=== PATIENT | female | born 2000 | race Caucasian/White ===

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

== ENCOUNTER → 2022-03-23 15:40 | Outpatient (BNVA) | payer MEDICAID, SELFPAY | PROVIDERS: PCP Pediatrics Adolescent Medicine; Visit Provider Nurse Practitioner | DX: J06.9 Acute upper respiratory infection, unspecified (principal); R68.89 Other general symptoms and signs | CPT/HCPCS: 87486; 87581; 87633 ==

== ENCOUNTER 2022-03-28 14:12 | Emergency (ER) | payer MEDICAID, SELFPAY ==
[2022-03-28 14:16] VITALS: BP 108/76; PULSE 89; RESP 16; TEMP 36.4; O2SAT 99
--- NOTE | 2022-03-28 14:20 | XRR_ITS ---
PROCEDURE INFORMATION: Exam: XR Right Knee Exam date and time: 03/28/2022 2:25 PM Age: 21 years old Clinical indication: Pain; Knee; Right; Additional info: Pain and swelling, no injury TECHNIQUE: Imaging protocol: Radiologic exam of the Right knee. Views: 3 views. COMPARISON: No relevant prior studies available. FINDINGS: Bones/joints: Osseous structures are intact. Negative for fracture. Joint spaces are preserved. Soft tissues: Normal. XR/XR knee RT 3V* [id number] IMPRESSION: No acute findings.
--- NOTE | 2022-03-28 14:32 | ED_ITS ---
HPI - Extremity Problem General: Chief complaint: Extremity Injury, Lower Stated complaint: right knee pain Time Seen by Provider: 03/28/22 14:13 History of Present Illness: Patient is a 21-year-old female comes to the ED with right knee pain. She denies any trauma or injury to cause symptoms. This morning she woke up and was having right knee pain and swelling. She has had this 1 time before and it lasted for approximately a week and went away. She endorses having pain that is mild and it worsens if she tries to completely straighten her right leg. She is able to weight-bear with minimal pain. Associated symptoms: Deny chest pain, fever(s) or rash Review of Systems Const: Denies: fever(s), chills or fatigue Eyes: Denies: change in vision or eye discomfort ENMT: Denies: throat pain, odynophagia, nasal discharge or nasal congestion Card: Denies: chest pain, palpitations, edema, swelling of feet/ankles, dyspnea on exertion or orthopnea Resp: Denies: dyspnea, productive cough or non-productive cough GI: Denies: abdominal pain, nausea, vomiting, diarrhea, constipation or hematochezia : Denies: flank pain, dysuria or hematuria Musc: Reports: extremity pain (Right knee) and extremity swelling (Right knee); Denies: neck pain, back pain or limited range of motion Skin/Breast: Denies: rash or new lesions Neuro: Denies: headache(s), numbness in extremities or weakness in extremities PFS ED PFSH: Medical History No pertinent family history Surgical History No pertinent past surgical history Social History Smoking and tobacco status: never smoked Alcohol intake: never Physical Exam Const: COMMON NORMALS: patient oriented x3 and alert GENERAL APPEARANCE: cooperative and comfortable HENMT: COMMON NORMALS: normocephalic HEAD & SCALP: normocephalic MOUTH: Normal oral and palatal mucosa present THROAT: posterior oropharynx normal and uvula midline Neck/C-Spine: COMMON NORMALS: supple GENERAL: Yes normal visual inspection Resp: COMMON NORMALS: normal respiratory effort, No retractions, No use of accessory muscles and clear to auscultation bilaterally AUSCULTATION: clear to auscultation bilaterally Cardio: COMMON NORMALS: regular rate, regular rhythm, S1 normal heart sound present, S2 normal heart sound present, No gallops present (Cardio), No clicks present (Cardio), No murmurs present (Cardio) and Peripheral pulses 2+ throughout RATE: regular rate RHYTHM: regular rhythm HEART SOUNDS: S1 normal heart sound present and S2 normal heart sound present PERIPHERAL PULSES: Peripheral pulses 2+ throughout GI: COMMON NORMALS: Normal to inspection, nondistended, normoactive bowel sounds present, Soft to palpation, non-tender and no masses PALPATION: Yes Soft to palpation : COMMON NORMALS: Yes no CVA tenderness BLADDER/KIDNEY EXAM: Yes no CVA tenderness Back/Pelvis: COMMON NORMALS: no CVA tenderness Extremity: COMMON NORMALS: normal to inspection NARRATIVE EXTREMITY EXAM: Patient has some visible right knee swelling and some mild tenderness to palpation. Range of motion is normal and patient is able to weight-bear with minimal pain. Neuro: COMMON NORMALS: patient oriented x3 SENSORIUM/ORIENTATION: Yes alert GAIT: Yes Normal gait present Skin: GENERAL SKIN EXAM: dry skin Course Vital Signs: Vital signs: Vital Signs Temperature 97.6 F 03/28/22 14:16 Pulse Rate 89 03/28/22 14:16 Respiratory Rate 16 03/28/22 14:16 Blood Pressure 108/76 03/28/22 14:16 Pulse Oximetry 99 03/28/22 14:16 Oxygen Delivery Me thod 03/28/22 14:16 MDM - Extremity (Nontraumatic) Medical Decision Making Patient is a 21-year-old female comes to the ED with right knee pain and swelling. Patient woke up with symptoms this morning. She denies any injury or trauma to cause right knee pain. Vitals are stable. X-ray of right knee showed no acute findings. Patient was diagnosed with right knee pain and was discharged home with some crutches and her knee was Leonid wrapped help with the swelling. Told to follow-up with PCP in the next week for reevaluation. Return ED precautions given. Patient understood and agreed with plan. Lab Data Radiology Impressions Knee X-Ray 03/28/22 14:20 IMPRESSION: No acute findings. Discharge Plan Discharge Patient Disposition: Home Clinical Impression: Pain in right knee Qualifiers: Chronicity: acute Qualified Code(s): M25.561 - Pain in right knee Condition: Stable Prescriptions: No Action fluticasone propionate [Flonase Allergy Relief] 50 mcg/actuation spray,suspension 2 spray intranasal DAILY Qty: 16 0RF Rx Instructions: administer into each nostril Discharge Orders: Discharge ED (Routine); Ordered 03/28/22 Ordered By: Bob Arriaga Referrals: Rosie Franklin MD [Primary Care Provider] - Discharge Diet: Regular Discharge Activity: Increase activity as tolerated and Use walker/crutches as instructed Patient Instructions: Knee Pain (ED) Activity Restrictions/Additional Instructions: Follow-up with medical provider as directed in the next 5 to 7 days for reevaluation. Use crutches to help ambulate and limit weightbearing for the next couple days then advance weightbearing as tolerated. Rest, ice and elevate right knee. Take medications as prescribed. Return to the ER or your medical provider if condition worsens. Please read and understand discharge instructions. Thank you for choosing [facility] for your healthcare needs today. Please realize this is an emergency room and that we are providing you with a medical screening exam and this may not be complete and all inclusive of all the testing and or work up that you may need to determine your ailment or severity of your illness. It is very important that you follow up as instructed or that you return to the Emergency Department should you have concerns or if your condition changes or worsens in any way. 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
== END 2022-03-28 15:25 | disposition home or self-care (01) ==
PROVIDERS: Emergency Provider Physician Assistant; PCP Pediatrics Adolescent Medicine
DX: M25.561 Pain in right knee (principal)
CPT/HCPCS: 73562; 99283; E0114

== ENCOUNTER 2022-05-07 21:43 | Emergency (ER) | payer MEDICAID, SELFPAY ==
[2022-05-07 21:50] VITALS: BP 121/82; PULSE 107; RESP 14; TEMP 36.7; O2SAT 99
--- NOTE | 2022-05-07 21:57 | ED_ITS ---
HPI - Female Genitourinary General: Chief complaint: Urogenital-Female Stated complaint: vaginal issues Time Seen by Provider: 05/07/22 21:54 History of Present Illness: 21-year-old female comes in today for complaints of vaginal protrusion after gagging. Patient denies any significant pain or discomfort. Patient appears nontoxic. Patient reports no history of or delivery. 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 Associated symptoms: Deny abdominal pain Review of Systems Const: Denies: fever(s) ENMT: Denies: throat pain Card: Denies: chest pain Resp: Denies: dyspnea GI: Denies: abdominal pain : Reports: prolapse symptoms; Denies: difficulty voiding Musc: Denies: neck pain Skin/Breast: Denies: rash PFSH ED PFSH: Medical History No pertinent family history Surgical History No pertinent past surgical history Social History Smoking and tobacco status: never smoked Alcohol intake: never Physical Exam Const: COMMON NORMALS: alert HENMT: COMMON NORMALS: normocephalic HEAD & SCALP: normocephalic Neck/C-Spine: COMMON NORMALS: full ROM Resp: COMMON NORMALS: normal respiratory effort and clear to auscultation bilaterally AUSCULTATION: clear to auscultation bilaterally Cardio: COMMON NORMALS: regular rate and regular rhythm RATE: regular rate RHYTHM: regular rhythm : COMMON NORMALS: Yes no CVA tenderness BLADDER/KIDNEY EXAM: Yes no CVA tenderness EXTERNAL FEMALE EXAM: Yes external swelling Back/Pelvis: COMMON NORMALS: no CVA tenderness Neuro: SENSORIUM/ORIENTATION: Yes alert Course Vital Signs: Vital signs: Vital Signs Temperature 98.1 F 05/07/22 21:50 Pulse Rate 107 H 05/07/22 21:50 Respiratory Rate 14 05/07/22 21:50 Blood Pressure 121/82 05/07/22 21:50 Pulse Oximetry 99 05/07/22 21:50 Oxygen Delivery Me thod 05/07/22 21:50 MDM - Female Medical Decision Making 21-year-old female comes in today with complaints of protrusion from her vaginal area. Patient reported that she had coughed and felt something protruding from her vagina. Patient was concerned she might of developed a prolapsed uterus. On exam we note swelling and edema to the labial folds. Unable to perform speculum exam due to the swelling. Digital exam noted no no prolapse of the uterus or bladder. Differential diagnosis includes not limited to atopic dermatitis, allergic reaction, yeast infection, bacterial vaginosis, trichomonas. Wet prep was negative. Patient does report a history of eczema. Suspect may be atopic dermatitis secondary to exposure to detergent or other products. Recommended steroid to help with the swelling. Encourage plenty of fluids and follow-up with primary care for recheck. Patient reported understanding agreed to plan. Lab Data Laboratory Results Urine Color Yellow (Yellow) 05/07/22 22:05 Urine Appearance Clear (CLEAR) 05/07/22 22:05 Urine pH 6 (5-7) 05/07/22 22:05 Ur Specific [place] 1.015 (1.005-1.030) 05/07/22 22:05 Urine Protein Neg (Negative) 05/07/22 22:05 Urine Glucose (UA) Norm (Normal) 05/07/22 22:05 Urine Ketones Negative (Negative) 05/07/22 22:05 Urine Blood Neg (Negative) 05/07/22 22:05 Urine Nitrate Negative (Negative) 05/07/22 22:05 Urine Bilirubin Neg (Negative) 05/07/22 22:05 Urine Urobilinogen Neg mg/dL (Negative) 05/07/22 22:05 Ur Leukocyte Esterase Negative (Negative) 05/07/22 22:05 Urine HCG, Qual Negative (Negative) 05/07/22 22:05 Discharge Plan Discharge Patient Disposition: Home Clinical Impression: Labial swelling Condition: Stable Prescriptions: New dexamethasone 4 mg tablet 4 mg PO DAILY Qty: 5 0RF No Action fluticasone propionate [Flonase Allergy Relief] 50 mcg/actuation spray,suspension 2 spray intranasal DAILY Qty: 16 0RF Rx Instructions: administer into each nostril Discharge Orders: Discharge ED (Routine); Ordered 05/07/22 Ordered By: Fortino Logan Referrals: Rosie Franklin MD [Primary Care Provider] - Discharge Diet: Usual diet Discharge Activity: Increase activity as tolerated Activity Restrictions/Additional Instructions: Take medications as directed. Drink plenty of water and fluids. Use cool compresses to the labial area for comfort. Use Benadryl, Claritin, or Zyrtec to help with the swelling. Pelvic rest until swelling resolves. Follow-up with primary care or OPERATIONS ENGINEER specialist in 3 to 5 days for recheck. Return to the [facility] room for high fever, inability to urinate, or new concerns. Coding Level of Care Code ED Salesperson Women'S Hats for Claire Black
[2022-05-07 22:12] LABS: Add Urine Microscopic? NO; Charge for UA Resulting for Rev
[2022-05-07] MEDS: diphenhydrAMINE 50 mg Capsule PO (22:37)
[2022-05-07 22:40] LABS: Bilirubin Urine Neg (Negative); Blood Urine Neg (Negative); Glucose Urine UA Norm (Normal); Ketones Urine Negative (Negative); Leukocyte Esterase Urine Negative (Negative); Nitrate Urine Negative (Negative); Protein Urine Neg (Negative); Specific Gravity, Urine 1.015 (1.005-1.030); Urine Appearance Clear (CLEAR); Urine Color Yellow (Yellow); Urobilinogen Urine Neg (Negative); pH Urine 6 (5-7)
[2022-05-07] MEDS: dexamethasone 4 mg Tablet 10 MG PO (23:12)
[2022-05-07 23:18] VITALS: BP 118/75; PULSE 87; O2SAT 96
== END 2022-05-07 23:19 | disposition home or self-care (01) ==
PROVIDERS: Emergency Provider Nurse Practitioner Family; PCP Pediatrics Adolescent Medicine
DX: N76.2 Acute vulvitis (principal)
CPT/HCPCS: 81003; 81025; 87210; 87491; 87591; 99284; E0352; J8540; Q0163

== ENCOUNTER 2022-07-22 07:03 | Emergency (ER) | payer MEDICAID, SELFPAY ==
--- NOTE | 2022-07-22 07:14 | ED_ITS ---
HPI - Headache General: Chief Complaint: Headache Stated Complaint: headache Time Seen by Provider: 07/22/22 07:08 History of Present Illness: Pt is a 22 y/o female who comes to the ED with migraine headache. Symptoms started earlier this morning at around 2 AM. She rates her headache currently a 10 out of 10. Headache is located behind left eye. Denies any head trauma. Endorses having nausea and had one episode of emesis this morning. Patient says she has had headaches similar to this before but has never been treated or evaluated for headaches. Denies any vision changes, numbness or tingling 1 side of her body or face or any weakness to 1 side of her body or face. She took a dose of Excedrin at around 3:00 this morning. Associated symptoms: Reports nausea and vomiting; Deny chest pain, fever(s) or rash Review of Systems Const: Denies: fever(s), chills or fatigue Eyes: Denies: change in vision or eye discomfort ENMT: Denies: throat pain, odynophagia, nasal discharge or nasal congestion Card: Denies: chest pain, palpitations, edema, swelling of feet/ankles, dyspnea on exertion or orthopnea Resp: Denies: dyspnea, productive cough or non-productive cough GI: Reports: nausea and vomiting; Denies: abdominal pain, diarrhea, constipation or hematochezia : Denies: flank pain, dysuria or hematuria Musc: Denies: neck pain, back pain or extremity swelling Skin/Breast: Denies: rash or new lesions Neuro: Reports: headache(s); Denies: numbness in extremities or weakness in extremities PFS ED PFSH: Medical History No pertinent family history Surgical History No pertinent past surgical history Social History Smoking and tobacco status: never smoked Alcohol intake: never Substance/Drug Use: never Physical Exam Const: COMMON NORMALS: no acute distress, patient oriented x3, healthy appearing and alert GENERAL APPEARANCE: cooperative and comfortable HENMT: COMMON NORMALS: normocephalic HEAD & SCALP: normocephalic MOUTH: Normal oral and palatal mucosa present THROAT: posterior oropharynx normal and uvula midline Eye: COMMON NORMALS: Equal, round and reactive pupils present and EOMs intact bilaterally GENERAL EYE: appearance normal, both eyes and all related structures PUPIL: Yes Equal, round and reactive pupils present Neck/C-Spine: COMMON NORMALS: supple GENERAL: Yes normal visual inspection Lymph: LYMPHATIC: no lymphadenopathy noted Resp: COMMON NORMALS: normal respiratory effort, No retractions, No use of accessory muscles and clear to auscultation bilaterally AUSCULTATION: clear to auscultation bilaterally Cardio: COMMON NORMALS: regular rate, regular rhythm, S1 normal heart sound present, S2 normal heart sound present, No gallops present (Cardio), No clicks present (Cardio), No murmurs present (Cardio) and Peripheral pulses 2+ throughout RATE: regular rate RHYTHM: regular rhythm HEART SOUNDS: S1 normal heart sound present and S2 normal heart sound present PERIPHERAL PULSES: Peripheral pulses 2+ throughout GI: COMMON NORMALS: Normal to inspection, nondistended, normoactive bowel sounds present, Soft to palpation, non-tender and no masses PALPATION: Yes Soft to palpation : COMMON NORMALS: Yes no CVA tenderness BLADDER/KIDNEY EXAM: Yes no CVA tenderness Back/Pelvis: COMMON NORMALS: no CVA tenderness Extremity: GENERAL: Yes normal exam except as noted Neuro: COMMON NORMALS: patient oriented x3, CN's II-XII intact bilaterally, moves all extremities, no focal motor deficits and no sensory deficits noted SENSORIUM/ORIENTATION: Yes alert SENSORY EXAM: Yes extremities (intact) MOTOR EXAM: 5/5 motor strength present throughout Skin: COMMON NORMALS: no rashes or lesions noted GENERAL SKIN EXAM: no rashes or lesions noted and dry skin Course Vital Signs: Vital signs: Vital Signs Temperature 98.0 F 07/22/22 07:18 Pulse Rate 64 07/22/22 08:47 Respiratory Rate 15 07/22/22 08:47 Blood Pressure 100/72 07/22/22 08:47 Pulse Oximetry 99 07/22/22 08:47 Oxygen Delivery Me thod Room Air 07/22/22 07:18 MDM - Headache Medical Decision Making Pt is a 22 y/o female who comes to the ED with migraine headache. Symptoms started earlier this morning at around 2 AM. She rates her headache currently a 10 out of 10. Headache is located behind left eye. Denies any head trauma. Endorses having nausea and had one episode of emesis this morning. Patient says she has had headaches similar to this before but has never been treated or evaluated for headaches. Denies any vision changes, numbness or tingling 1 side of her body or face or any weakness to 1 side of her body or face. She took a dose of Excedrin at around 3:00 this morning. Vitals are stable. Neuro exam shows no deficits. Patient appears nontoxic and in no acute distress. CT of head showed no acute findings. I ordered IV migraine cocktail and patient, but she refused any IM or IV medications. Patient was given p.o. Tylenol and nausea med and was stable for discharge home. Diagnosed with migraine headache and told to follow-up with her PCP within the next week for reevaluation. Return to ED precautions given. Patient understood and agreed with plan. Lab Data Radiology Impressions Head CT 07/22/22 07:31 IMPRESSION: No acute intracranial abnormality. Discharge Plan Discharge Patient Disposition: Home Clinical Impression: Migraine headache Qualifiers: Migraine type: without aura Status migrainosus presence: without status migrainosus Intractability: not intractable Qualified Code(s): G43.009 - Migraine without aura, not intractable, without status migrainosus Condition: Stable Prescriptions: No Action fluticasone propionate [Flonase Allergy Relief] 50 mcg/actuation spray,suspension 2 spray intranasal DAILY Qty: 16 0RF Rx Instructions: administer into each nostril dexamethasone 4 mg tablet 4 mg PO DAILY Qty: 5 0RF Discharge Orders: Discharge ED (Routine); Ordered 07/22/22 Ordered By: Bob Arriaga Referrals: Rosie Franklin MD [Primary Care Provider] - Discharge Diet: Regular Discharge Activity: Increase activity as tolerated Patient Instructions: Migraine Headache (ED) Activity Restrictions/Additional Instructions: Follow-up with medical provider as directed in the next 5 to 7 days for reevaluation. Take [id number] Tylenol, ibuprofen or Excedrin for headaches. Return to the ER or your medical provider if condition worsens. Please read and understand discharge instructions. Thank you for choosing [facility] for your healthcare needs today. Please realize this is an emergency room and that we are providing you with a medical screening exam and this may not be complete and all inclusive of all the testing and or work up that you may need to determine your ailment or severity of your illness. It is very important that you follow up as instructed or that you return to the Emergency Department should you have concerns or if your condition changes or worsens in any way. Coding Level of Care Code ED Residential Real Estate Assistant for Claire Black
[2022-07-22 07:18] VITALS: BP 109/64; PULSE 68; RESP 16; TEMP 36.7; O2SAT 100
--- NOTE | 2022-07-22 07:31 | CTR_ITS ---
PROCEDURE INFORMATION: Exam: CT Head Without Contrast Exam date and time: 07/22/2022 7:37 AM Age: 22 years old Clinical indication: Pain; Headache; Additional info: First migraine headache TECHNIQUE: Imaging protocol: Computed tomography of the head without contrast. Radiation optimization: All CT scans at this facility use at least one of these dose optimization techniques: automated exposure control; mA and/or kV adjustment per patient size (includes targeted exams where dose is matched to clinical indication); or iterative reconstruction. REPORTING DATA: Count of CT and Cardiac NM exams in prior 12 months: This patient has received 0 known CTs and 0 known cardiac nuclear medicine studies in the 12 months prior to the current study. COMPARISON: CT head wo con* [id number] 01/26/2017 9:50 PM RADIATION DOSE METRICS: Total DLP (mGy-cm): 1147.31 FINDINGS: Brain: No acute hemorrhage identified. No large territorial areas of hypoattenuation concerning for ischemic infarct identified. No intracranial mass effect. Cerebral ventricles: The ventricles are within normal limits. Paranasal sinuses: The visualized sinuses are unremarkable. Mastoid air cells: The visualized mastoid air cells are well aerated. Bones/joints: The osseous structures are intact. Soft tissues: Unremarkable. CT/CT head wo con* [id number] IMPRESSION: No acute intracranial abnormality.
--- NOTE | 2022-07-22 07:50 | PC.NURSE ---
pt refusing IV insertion. refusing all medications IV or IM.
[2022-07-22] MEDS: acetaminophen 500 mg Tablet 1000 MG PO (08:36)
[2022-07-22] MEDS: metoclopramide 10 mg Tablet PO (08:37)
[2022-07-22 08:47] VITALS: BP 100/72; PULSE 64; RESP 15; O2SAT 99
== END 2022-07-22 08:48 | disposition home or self-care (01) ==
PROVIDERS: Emergency Provider Physician Assistant; PCP Pediatrics Adolescent Medicine
DX: G43.009 Migraine without aura, not intractable, without status migrainosus (principal)
CPT/HCPCS: 70450; 99284; J8597

== ENCOUNTER → 2022-08-06 15:30 | Outpatient (BNVA) | payer OTHER, MEDICAID, SELFPAY | PROVIDERS: PCP Family Medicine; Visit Provider Obstetrics & Gynecology | DX: N93.9 Abnormal uterine and vaginal bleeding, unspecified (principal); N91.5 Oligomenorrhea, unspecified; N97.0 Female infertility associated with anovulation | CPT/HCPCS: 84146; 84443; 85025 ==

== ENCOUNTER → 2022-08-23 12:00 | Outpatient (BNVA) | payer OTHER, MEDICAID, SELFPAY | PROVIDERS: PCP Family Medicine; Visit Provider Obstetrics & Gynecology | DX: Z12.4 Encounter for screening for malignant neoplasm of cervix (principal) | CPT/HCPCS: 88175 ==

== ENCOUNTER 2022-10-19 13:44 | Outpatient (CLI) | payer OTHER, MEDICAID, SELFPAY ==
[2022-10-19 14:04] LABS: Basophils # 0.1 10^3/uL (0.0-0.1); Basophils % 0.7 %; Eosinophils # 0.2 10^3/uL (0.0-0.8); Eosinophils % 3.2 %; Hematocrit 37.9 % (37.0-47.0); Hemoglobin 13.2 g/dL (11.5-15.3); Lymphocytes % 43.2 %; Mean Corpuscular HGB Conc 34.8 g/dL (30.0-36.0); Mean Corpuscular Hemoglobin 33.9 pg (28.0-34.0); Mean Corpuscular Volume 97.4 fl (81-99); Mean Platelet Volume 9.3 fL (7.4-10.4); Monocytes # 0.6 10^3/uL (0.2-0.9); Monocytes % 8.6 %; Neutrophils # 3.05 10^3/uL (1.8-8.0); Nucleated Red Blood Cells % 0 %; Platelet Count 262 10^3/cmm (130-400); Red Blood Count 3.89 10^6/uL (4.1-5.3); Red Cell Distribution Width 11.5 % (12.1-15.1); White Blood Count 6.9 10^3/uL (4.5-13.0)
[2022-10-19 14:47] LABS: 25 Hydroxy Vitamin D 32 ng/mL (30-100); Alanine Aminotransferase 15 U/L (0-33); Albumin Level 4.5 g/dL (3.5-5.2); Alkaline Phosphatase 72 U/L (35-105); Anion Gap 12.8 (5-19); Aspartate Amino Transferase 17 U/L (0-32); Blood Urea Nitrogen 12 mg/dL (6-20); Calcium 9.4 mg/dL (8.5-10.5); Carbon Dioxide 27 mmol/L (22-29); Chloride 102 mmol/L (98-107); Chol HDL Ratio 4.18 mg/dL (0.0-4.40); Cholesterol 188 mg/dL (0-200); Globulin 2.9 g/dL (1.3-4.6); Glomerular Filtration Rate 106.7 mL/min (90-130); Glucose 106 mg/dL (65-115); HDL Cholesterol 45 mg/dL (60-100); LDL Cholesterol Calculated 112 mg/dL (50-129); LDL HDL Ratio 2.49 RATIO (0.00-3.22); Osmolality Calculated 286 mOsm/kg (285-295); Potassium 3.8 mmol/L (3.5-5.1); Sodium 138 mmol/L (136-145); Thyroid Stimulating Hormone 2.14 uIU/mL (0.27-4.20); Total Bilirubin 0.2 mg/dL (0.15-1.2); Total Protein 7.4 g/dL (6.6-8.7); Triglycerides 156 mg/dL (0-150)
[2022-10-19 15:11] LABS: Free T4 Free Thyroxine 1.19 ng/dL (0.82-1.77)
== END 2022-10-19 13:45 | disposition home or self-care (01) ==
PROVIDERS: PCP Family Medicine; Visit Provider Nurse Practitioner
DX: Z00.00 Encounter for general adult medical examination without abnormal findings (principal); Z79.899 Other long term (current) drug therapy
CPT/HCPCS: 80053; 80061; 82306; 84439; 84443; 85025

== ENCOUNTER → 2022-10-20 11:14 | Outpatient (BNVA) | payer OTHER, MEDICAID, SELFPAY | PROVIDERS: PCP Family Medicine; Visit Provider Obstetrics & Gynecology | DX: N97.0 Female infertility associated with anovulation (principal); N83.8 Other noninflammatory disorders of ovary, fallopian tube and broad ligament | CPT/HCPCS: 76830 ==

== ENCOUNTER 2023-04-01 15:28 | Emergency (ER) | payer OTHER, MEDICAID, SELFPAY ==
--- NOTE | 2023-04-01 15:31 | XRR_ITS ---
PROCEDURE INFORMATION: Exam: XR Chest Exam date and time: 04/01/2023 4:01 PM Age: 22 years old Clinical indication: Pain; Left-sided; Additional info: Cp TECHNIQUE: Imaging protocol: Radiologic exam of the chest. Views: 1 view. COMPARISON: CR XR chest 2V* [id number] 07/17/2021 7:56 PM FINDINGS: Lungs: Unremarkable. No consolidation. Pleural spaces: Unremarkable. No pleural effusion. No pneumothorax. Heart/Mediastinum: Unremarkable. No cardiomegaly. Bones/joints: Unremarkable. XR/XR chest 1V portable [id number] IMPRESSION: No acute findings.
--- NOTE | 2023-04-01 15:31 | ECG_ITS ---
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 Measurements Intervals [place] Rate: 68 P: 50 CO: 131 QRS: 87 QRSD: 94 T: 60 QT: 387 QTc: 412 Interpretive Statements SINUS RHYTHM WITH SINUS ARRHYTHMIA No previous ECG available for comparison Electronically Signed On 04-01-2023 18:13:12 IT SALES EXECUTIVE by Savi Ghosh M.D. [id number]
[2023-04-01 15:32] VITALS: BP 110/57; PULSE 69; RESP 15; TEMP 36.6; O2SAT 97
--- NOTE | 2023-04-01 15:46 | W.ED.CHESTPA ---
HPI - Chest Pain General: Chief Complaint: Chest Pain Stated Complaint: left side chest pain Time Seen by Provider: 04/01/23 15:31 Source: patient Mode of arrival: ambulatory Limitations: no limitations History of Present Illness: 22-year-old female states she has been having sharp left-sided chest pain over the last 2 days. She denies any worsening improving factors she denies any shortness of breath. States on her left lateral chest she states she has had pain like this before. She denies any recent surgeries denies any recent long trips she is not on control denies any family history of heart disease or blood clots. Associated symptoms: Deny abdominal pain, dyspnea, fever(s), nausea or vomiting Review of Systems Const: Denies: fever(s), chills, body aches or change in appetite Eyes: Denies: blurry vision or eye discomfort ENMT: Denies: throat pain or dental pain Card: Reports: chest pain Resp: Denies: dyspnea GI: Denies: abdominal pain, nausea, vomiting or diarrhea : Denies: dysuria Musc: Denies: neck pain or back pain Skin/Breast: Denies: rash Neuro: Denies: headache(s) PFSH ED PFSH: Medical History Migraine headache No pertinent family history Atopic dermatitis Surgical History History of tonsillectomy No pertinent past surgical history Family History Grandmother Cancer Paternal-skin Mother Anemia Other Diabetes Hypertension Denies family history of CAD (coronary artery disease) Clotting disorder Dementia Hyperlipidemia Psychiatric illness Chronic kidney disease (CKD) Anesthesia complication Bleeding disorder Lung disease Stroke Physical Exam Const: COMMON NORMALS: no acute distress, patient oriented x3 and healthy appearing HENMT: COMMON NORMALS: normocephalic and atraumatic HEAD & SCALP: normocephalic and atraumatic Eye: COMMON NORMALS: Equal, round and reactive pupils present and EOMs intact bilaterally PUPIL: Yes Equal, round and reactive pupils present Neck/C-Spine: COMMON NORMALS: full ROM and supple Chest: COMMONS NORMALS: normal inspection of the chest and normal palpation of entire chest wall Resp: COMMON NORMALS: normal respiratory effort, No retractions, No use of accessory muscles and clear to auscultation bilaterally AUSCULTATION: clear to auscultation bilaterally Cardio: COMMON NORMALS: regular rate, regular rhythm and No murmurs present (Cardio) RATE: regular rate RHYTHM: regular rhythm GI: COMMON NORMALS: Normal to inspection, nondistended, normoactive bowel sounds present, Soft to palpation, non-tender and no masses PALPATION: Yes Soft to palpation Extremity: COMMON NORMALS: normal to inspection and full ROM Neuro: COMMON NORMALS: patient oriented x3, moves all extremities and no focal motor deficits Psych: COMMON NORMALS: mental status grossly normal, Normal thought process present and cooperative THOUGHT PROCESS: Normal thought process present Skin: COMMON NORMALS: no rashes or lesions noted and no wounds GENERAL SKIN EXAM: no rashes or lesions noted Course Vital Signs: Vital signs: Vital Signs Temperature 97.8 F 04/01/23 15:32 Pulse Rate 69 04/01/23 15:32 Respiratory Rate 15 04/01/23 15:32 Blood Pressure 110/57 04/01/23 15:32 Pulse Oximetry 97 04/01/23 15:32 Oxygen Delivery Me thod Room Air 04/01/23 15:32 MDM - Chest Pain Medical Decision Making Patient presents here with chest pains atypical in nature x-ray EKG here are normal likely muscular pain she has no signs of PE. She is stable for discharge she is follow-up with PCP and return if worsening. Medical Records I reviewed the patient's medical records. Lab Data I reviewed the patient's lab results. XR interpretation done by ED provider, pending radiology final review EKG Data EKG 1: I personally reviewed and interpreted this EKG as follows: EKG interpretation date: 04/01/23 EKG interpretation time: 15:42 Interpretation: nsr hr [address] or t wave abnormalities qrs 94 qtc 403 Discharge Plan Discharge Patient Disposition: Home Clinical Impression: Chest pain Condition: Stable Prescriptions: No Action venlafaxine [Effexor XR] 37.5 mg capsule,extended release 24hr 37.5 mg PO DAILY Qty: 30 0RF medroxyprogesterone [Provera] 10 mg tablet 10 mg PO BID Qty: 10 0RF Rx Instructions: twice daily for 5 days letrozole [Femara] 2.5 mg tablet 2.5 mg PO DAILY 5 Days Qty: 10 0RF Rx Instructions: 2 tablets once daily for 5 days Discharge Orders: Discharge ED (Routine); Ordered 04/01/23 Ordered By: René Pascal Referrals: Bryant Linton MD [Primary Care Provider] - 1-3 days Discharge Diet: Advance as tolerated Discharge Activity: Resume usual activity Patient Instructions: Chest Pain (ED) Coding Level of Care Code ED Policy Cancellation Clerk for Claire Black
[2023-04-01 16:20] VITALS: BP 102/69; PULSE 77; O2SAT 98
== END 2023-04-01 16:21 | disposition home or self-care (01) ==
PROVIDERS: Emergency Provider Emergency Medicine; PCP Family Medicine
DX: R07.9 Chest pain, unspecified (principal)
CPT/HCPCS: 71045; 93005; 99284

== ENCOUNTER → 2024-04-24 14:25 | Outpatient (BNVA) | payer OTHER, SELFPAY | DX: E04.9 Nontoxic goiter, unspecified (principal); Z86.39 Personal history of other endocrine, nutritional and metabolic disease | CPT/HCPCS: 80053; 84439; 84443; 85025; 86376 ==

== ENCOUNTER 2024-05-23 09:07 | Outpatient (CLI) | payer OTHER, SELFPAY ==
--- NOTE | 2024-05-23 09:15 | US_ITS ---
WS: [id number] THYROID ULTRASOUND HISTORY: thyroid goiter COMPARISON: None available. Right lobe: 3.3 cm x 2.7 cm x 5.9 cm (w x ap x l). Volume: 25.3 cm3. Markedly enlarged heterogeneous thyroid. There is a dominant nodule with numerous cystic areas involving the mid and lower thyroid. This nodule measures 3.1 x 2.6 x 3.6 cm. There is mild increased vascularity within the nodule. Left lobe: 1.2 cm x 1.5 cm x 4.0 cm (w x ap x l). Volume: 3.5 cm3. Normal size and echotexture. No significant or dominant nodules are present. Isthmus: 0.2 cm. US/US thyroid [id number] IMPRESSION: 1. TI-RADS 2; large RIGHT thyroid nodule. Nodule measures 3.1 x 2.6 x 3.6 cm. This is a spongiform nodule which are typically benign nodules. Using TI-RADS c riteria no FNA recommended. 2. No LEFT thyroid nodule.
== END 2024-05-23 09:08 | disposition home or self-care (01) ==
LOC: RAD 09:10
PROVIDERS: Visit Provider Family Medicine
DX: E04.9 Nontoxic goiter, unspecified (principal); E04.1 Nontoxic single thyroid nodule; R93.89 Abnormal findings on diagnostic imaging of other specified body structures
CPT/HCPCS: 76536

== ENCOUNTER 2024-05-28 11:00 | Emergency (ER) | payer OTHER, SELFPAY ==
[2024-05-28 11:18] VITALS: BP 110/78; PULSE 73; TEMP 36.8; O2SAT 100; BMI 21.1
--- NOTE | 2024-05-28 11:48 | ED_ITS ---
HPI - Animal Bite General: Chief Complaint: Animal Bite Stated Complaint: dog bite Time Seen by Provider: 05/28/24 11:46 Source: patient Mode of arrival: ambulatory Limitations: no limitations History of Present Illness: 24-year-old female presents to the ER co ncerning a dog bite on her left ring finger. Patient states she was at home with her 2 dogs just prior to arrival that were fighting and intervened and one of them bit her. Dogs are household pets and only outside to toilet. One of the dogs is UTD on immunizations-unsure on the other. Not sure which dog bit her. Dogs can be quarantined. Patient reports her last tetanus shot was 3 months ago. complaint: animal bite Onset (ago): hour(s) Animal: dog Description of animal: household pet Mechanism: bite Location: other (L. ring finger) Location - Extremities: Left: hand (Ring finger) Pain description: other (tingling ) Context: animals fighting Associated symptoms: Reports bleeding and numbness; Deny chills, fever(s) or headache(s) Treatments prior to arrival: irrigation and pressure Related Data Home Medications ?Medication ?Instructions ?Recorded ?Confirmed acetaminophen-caffeine 500 mg-65 2 tab PO Q6H PRN Feve r Or Pain 05/28/24 05/28/24 mg tablet Previous Rx's ?Medication ?Instructions ?Recorded propranolol 40 mg tablet 20 mg (1/2 x 40 mg) PO ONCE #30 05/03/24 tabs amoxicillin 875 mg-potassium 1 tab PO BID #14 tabs 01/12 clavulanate 125 mg tablet Allergies Allergy/AdvReac Type Severity Reaction Status Date / Time No Known Allergies Allergy Verified 05/28/24 11:22 Review of Systems Const: Denies: fever(s), chills or body aches GI: Denies: nausea or vomiting Musc: Reports: extremity pain (L. ring finger tip) Skin/Breast: Reports: other (dog bite L finger) Neuro: Denies: headache(s), numbness in extremities or weakness in extremities PFSH ED PFSH: Medical History Bursitis of both knees Migraine headache No pertinent family history Atopic dermatitis Surgical History History of tonsillectomy No pertinent past surgical history Family History Grandmother Cancer Paternal-skin Mother Anemia Other Diabetes Hypertension Denies family history of CAD (coronary artery disease) Clotting disorder Dementia Hyperlipidemia Psychiatric illness Chronic kidney disease (CKD) Anesthesia complication Bleeding disorder Lung disease Stroke Social History Smoking and tobacco/nicotine status: never used tobacco/nicotine Physical Exam Const: COMMON NORMALS: no acute distress, average body habitus, patient oriented x3, no limitations, healthy appearing, alert and well nourished GENERAL APPEARANCE: cooperative ORIENTATION/CONSCIOUSNESS: Yes awake, Yes oriented to person, Yes oriented to place and Yes oriented to time Extremity: COMMON NORMALS: full ROM and capillary refill normal GENERAL: Yes normal exam except as noted LEFT UPPER EXTREMITY: Yes hand & digits (NV intact; fairly superficial; no bony/tendon involvement ) Left hand and digits: Yes inspection (small dog bite/laceration <1cm palmar distal pad L ring finger), Yes ROM (normal) and Yes neurovascular exam (normal) Neuro: COMMON NORMALS: patient oriented x3, moves all extremities, no focal motor deficits and no sensory deficits noted SENSORIUM/ORIENTATION: Yes alert, Yes oriented to person, Yes oriented to place and Yes oriented to time Skin: NARRATIVE SKIN EXAM: see extremity above Procedures Laceration Laceration 1: Site: hand Side (If applicable): left (ring finger) Size (cm): 1.0 Description: linear Depth: simple, single layer Local Anesthetic: lidocaine 2% (digital block) Amount of anesthesia used (mL): 3.0 Pre-repair: wound explored and irrigated extensively Skin layer closed with: nylon Size (cm): 5-0 Number of sutures: 2 Technique: simple, interrupted Course Vital Signs: Vital signs: Vital Signs Temperature 98.2 F 05/28/24 11:18 Pulse Rate 76 05/28/24 12:43 Blood Pressure 142/75 05/28/24 12:43 Pulse Oximetry 98 05/28/24 12:43 Oxygen Delivery Me thod Room Air 05/28/24 11:18 MDM - Animal Bite Medical Decision Making Wound was copiously irrigated and repaired as documented. Tetanus is up-to-date. Dogs were household animals and can be quarantined. She does not require rabies PEP. She will be placed on Augmentin for antibiotic coverage. Wound care/infection precautions were verbally discussed with patient prior to discharge. Differential Diagnosis Likely bite by animal and dog bite Medical Records I reviewed the patient's medical records. No radiology studies performed this visit Discharge Plan Discharge Patient Disposition: Home Clinical Impression: Open wound of left ring finger due to dog bite Condition: Stable Prescriptions: New amoxicillin-pot clavulanate 875-125 mg tablet 1 tab PO BID Qty: 14 0RF No Action propranolol 40 mg tablet 20 mg PO ONCE Qty: 30 0RF Excedrin Aspirin Free 500-65 mg Tablet 2 tab PO Q6H PRN (Reason: Fever Or Pain) Discharge Orders: Discharge ED (Routine); Ordered 05/28/24 Ordered By: Rica Browne Referrals: Alyson Gant NP [Primary Care Provider] - Patient Instructions: Animal Bite (ED), Finger Laceration (ED) Activity Restrictions/Additional Instructions: Keep wound/laceration clean with warm soap and water twice daily. Monitor for signs of infection such as redness, swelling, increased pain, or drainage. Please seek medical re-evaluation if these occur. If you received sutures today these will need to be removed (unless you were told by the provider that they are absorbable). The provider should have discussed with you the length of time until removal-7 DAYS. 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
[2024-05-28] MEDS: ondansetron hcl ODT 4 mg Tab PO (12:20)
[2024-05-28 12:43] VITALS: BP 142/75; PULSE 76; O2SAT 98
== END 2024-05-28 12:44 | disposition home or self-care (01) ==
PROVIDERS: Emergency Provider Physician Assistant
DX: S61.255A Open bite of left ring finger without damage to nail, initial encounter (principal); W54.0XXA Bitten by dog, initial encounter
CPT/HCPCS: 12001; 99283; Q0162